=== PATIENT | male | born 1955 | race Caucasian/White ===

== ENCOUNTER → 2018-12-02 12:54 | Outpatient (CLI) | payer BC, OTHER, SELFPAY ==
--- NOTE | 2018-12-02 15:23 | PM.TREADMILL ---
Cardiac Stress Test Report Referral & Results Date Patient Seen: 12/02/18 Requesting provider: Rody Barahona Indication: Chest discomfort Rest ECG: Unremarkable Procedure Note: After both written and verbal informed consent the patient had an IV started by the diagnostic imaging RN and then was hooked up to the treadmill monitoring system. The patient was placed on the treadmill at 1 mile an hour with no elevation and was then injected with the Shwetha scan material. The Cardiolite was then immediately administered. The patient spent an additional 2-3 minutes on the treadmill before being returned to the [facility] in the supine position. The patient had a normal response to all infused materials. Impression: Single ventricular couplet otherwise normal response to infuse materials Please see perfusion imaging report for further details Please note: Actual ECG tracings can be found in the PACS system.
--- NOTE | 2018-12-05 20:32 | DI.NM.S_ITS ---
DATE OF SERVICE: 12/02/2018 PROCEDURE: Pharmacological perfusion study. INDICATIONS: Chest pain with underlying diabetes mellitus, hypertension, hyperlipidemia, obesity. RADIOPHARMACEUTICAL: 20.6 mCi technetium-99m Myoview IV was injected at stress and 20.7 mCi technetium-99m Myoview IV was injected at rest. CARDIAC STRESS: Patient underwent IV Lexiscan perfusion study under the supervision of an attending staff using standard IV Lexiscan infusion as per standard protocol. Patient remained hemodynamically stable. Baseline rhythm was sinus. Stress EKG did not reveal any obvious inducible ischemic changes. Occasional ventricular couplets seen. No sustained ventricular tachycardia seen. RAW DATA: There was increased subdiaphragmatic activity. Patient's weight is 254 pounds. GATED STUDY: Stress LV ejection fraction 63% without any obvious wall motion abnormalities. No transient ischemic dilatation. TID ratio is 0.82, which is within normal limits. Resting LV end-diastolic volume is 104 mL. Lung/heart ratio is 0.46, which is mildly abnormal. MYOCARDIAL PERFUSION SCAN: Stress supine and resting supine images revealed moderate-sized [id number] decreased perfusion of inferior wall and inferior apex which got significantly improved during prone images suggestive of tissue attenuation artifact. I do not see any convincing ischemia infarction. CONCLUSION: I will call this study likely a normal myocardial perfusion study with evidence of diaphragmatic tissue attenuation artifact which got improved during prone images. No transient ischemic dilatation. Preserved systolic function. Lung/heart ratio mildly abnormal. Consider 2-D echo to rule out diastolic dysfunction or valvular pathology. Richie Laurent - [employer]/cynthia/ab doc#: [id number]/job#: [id number] dd: 12/05/2018 18:10:00 dt: 12/05/2018 20:21:00 DICTATING MD/COPIES TO: Chris Oliver MD COPIES MNE: SIMON
== END ==
PROVIDERS: PCP Family Medicine; Visit Provider Family Medicine
DX: R07.89 Other chest pain (principal); E11.9 Type 2 diabetes mellitus without complications; I10 Essential (primary) hypertension; E78.5 Hyperlipidemia, unspecified; E66.9 Obesity, unspecified
CPT/HCPCS: 78452; 93016; 93017; 93018; A9502; J2785

== ENCOUNTER → 2019-11-22 09:12 | Outpatient (CLI) | payer BC, OTHER, SELFPAY ==
--- NOTE | 2019-11-22 09:14 | DI.RAD.S_ITS ---
PROCEDURE: XR LUMBAR SPINE MIN 4V INDICATIONS: Low back pain s/p fusion TECHNIQUE: 4 views of the lumbar spine were acquired. COMPARISON: [facility], [place], SPINE LUMB 2 OR 3VW, 03/11/2016, 14:55. [facility], [place]IO, L-SPINE 2-3 VIEWS, 11/07/2015, 8:53. FINDINGS: Bones: 5 nonrib-bearing vertebrae are present. Unchanged bony alignment. L4-L5 and pedicle screws with intervertebral body spacer. No periprosthetic lucency. No hardware fracture. There is L4-L5 and L5-S1 facet hypertrophy. No vertebral body compression fractures. No suspicious bony lesions. The SI joints appear symmetric. Soft tissues: Overlying bowel gas pattern is normal. A small calcification in in the mid left abdomen. This could represent a medication fragment or less likely kidney stone. Atherosclerotic calcified plaque. IMPRESSION: L4-L5 pedicle screw fixation is stable in appearance. Mild to moderate degenerative change in the lumbar spine. Dictated by: Kevin Ayala M.D. on 11/22/2019 at 9:50 Approved by: Kevin Ayala M.D. on 11/22/2019 at 9:53
== END ==
PROVIDERS: PCP Family Medicine; Referring Provider Physical Medicine & Rehabilitation; Visit Provider Physical Medicine & Rehabilitation
DX: M54.5 Low back pain (principal); M48.061 Spinal stenosis, lumbar region without neurogenic claudication; M47.816 Spondylosis without myelopathy or radiculopathy, lumbar region; Z98.1 Arthrodesis status
CPT/HCPCS: 72110

== ENCOUNTER → 2019-12-13 09:38 | Outpatient (CLI) | payer BC, OTHER, SELFPAY ==
--- NOTE | 2019-12-13 09:39 | DI.MRI.S_ITS ---
PROCEDURE: MR LUMBAR SPINE WO CON INDICATIONS: lower back pain TECHNIQUE: Noncontrast sagittal T1 spin echo and T2 fast echo, sagittal STIR, axial T1 and T2 fast spin echo through the lumbar spine. In cases with scoliosis, additional coronal T2 fast spin echo may be performed. COMPARISON: [facility], CR, L-SPINE 2-3 VIEWS, 11/07/2015, 8:53. [facility], CR, XR LUMBAR SPINE MIN 4V, 11/22/2019, 9:11. FINDINGS: Image quality: This examination is limited by involuntary motion artifact. Alignment and Curvature: There is normal bony alignment. Bone Marrow: Marrow is of normal overall signal. No acute vertebral body compression fractures. Spinal Cord: Conus medullaris terminates at the T12-L1 level. Visualized cord demonstrates normal signal and size. Paraspinous Soft Tissues: No paravertebral masses. T12-L1: Normal appearance. L1-L2: No significant abnormality is seen. L2-L3: The disc height is well-preserved. Loss of disc signal is seen at this level. Moderate generalized disc bulge is seen. Mild to moderate facet hypertrophy is seen. Moderate bilateral neural foraminal narrowing is seen. Moderate central canal narrowing is seen. L3-L4: The disc height is relatively well-preserved. Loss of disc signal is seen. Moderate generalized disc bulge is seen. Moderate facet joint hypertrophy is seen. Associated hypertrophy of the ligamentum flavum can be seen. Along the medial aspect of the right facet joint, there is a T2 hyperintense focus seen, as on series 5 image 21 and is too image 9 that measures up to 1 cm craniocaudally. There is associated severe central canal narrowing. At least moderate bilateral neural foraminal narrowing can be seen at this level. There is a degree of compression seen upon the exiting nerve roots. L4-L5: Postoperative changes are seen, with bilateral pedicle screws and a disc spacer. Vertical fixation rods are seen. There is associated susceptibility artifact. Reactive marrow endplate changes are seen, which are hyperintense on T1-weighted and T2-weighted imaging and most consistent with fatty metaplasia (Modic type II changes). Moderate generalized disc bulge is seen. Moderate facet joint hypertrophy is seen. There is moderate to severe left-sided neural foraminal narrowing seen, with a mild degree of compression seen upon the exiting right L4 nerve root. Moderate right-sided neural foraminal narrowing can be seen. Mild central canal narrowing is seen. L5-S1: The disc height is well-preserved. Loss of disc signal is seen at this level. Mild to moderate disc bulge is seen. Mild to moderate facet hypertrophy is seen. There is mild to moderate right-sided and moderate left-sided neural foraminal narrowing seen. Moderate central canal narrowing is seen. IMPRESSION: At the L3-L4 level, there is a 1 cm T2 hyperintense lesion seen along the medial aspect of the right facet joint, which is attributed to a synovial cyst. There is associated severe central canal narrowing. Unremarkable postoperative change of L4-L5. Moderate to severe bilateral neural foraminal narrowing is seen bilaterally at L3-L4, and there is moderate to severe left-sided neural foraminal narrowing at L4-L5. Associated nerve root compression can be seen. Dictated by: Kayden Yoon M.D. on 12/13/2019 at 11:02 Approved by: Kayden Yoon M.D. on 12/13/2019 at 11:11
== END ==
PROVIDERS: PCP Family Medicine; Referring Provider Physical Medicine & Rehabilitation; Visit Provider Physical Medicine & Rehabilitation
DX: M54.5 Low back pain (principal); M47.816 Spondylosis without myelopathy or radiculopathy, lumbar region; M48.061 Spinal stenosis, lumbar region without neurogenic claudication; M71.38 Other bursal cyst, other site; Z98.1 Arthrodesis status
CPT/HCPCS: 72148

== ENCOUNTER → 2020-02-03 09:58 | Outpatient (CLI) | payer BC, OTHER, SELFPAY ==
[2020-02-04 09:20] LABS: COVID19 Sendout Not Detected (Not Detect)
== END ==
PROVIDERS: PCP Family Medicine; Visit Provider Physician Assistant
DX: Z11.59 Encounter for screening for other viral diseases (principal)
CPT/HCPCS: 87635

== ENCOUNTER 2020-02-06 12:26 | Outpatient (CLI) | payer BC, OTHER, SELFPAY ==
[2020-02-06] VITALS (8 sets, daily range): BP systolic 119–187; BP diastolic 57–92; PULSE 63–78; RESP 9–20; TEMP 36.5; O2SAT 95–98
--- NOTE | 2020-02-06 12:27 | DI.RAD.S_ITS ---
PROCEDURE: PAIN L INTERLAMINAR/CAUDAL INJ INDICATIONS: SPONDYLOSIS COMPARISON: None. FINDINGS: Fluoroscopic spot filming was performed to verify placement of spinal needles at the L3-L4 level(s), as labeled on the films. Appropriate location(s) of the needle tip(s) was confirmed by injection of iodinated contrast. IMPRESSION: Successful needle tip localization at the midline, L3-L4 interlaminar space, for epidural steroid injection. Dictated by: Brian Casillas M.D. on 02/06/2020 at 14:46 Approved by: Brian Casillas M.D. on 02/06/2020 at 14:46
[2020-02-06] MEDS: MIDAZOLAM 5 MG/5 ML VIAL IV (13:20)
[2020-02-06] MEDS: fentaNYL 100 MCG/2 ML INJ 50 MCG IV (13:20)
[2020-02-06] MEDS: BETAMETHASONE 30 MG/5 ML MDV 6 MG INJ (13:24)
[2020-02-06] MEDS: BUPIVACAINE 0.25% (PF) VIAL 2 ML INJ (13:24)
[2020-02-06] MEDS: DEXAMETHASONE 10 MG/ML VIAL 20 MG INJ (13:24)
[2020-02-06] MEDS: IOPAMIDOL 15 ML VIAL 3 ML INJ (13:24)
--- NOTE | 2020-02-06 13:32 | P.PCN_ITS ---
Date/Time/Diagnoses Date of procedure: 02/06/20 Time of procedure: 13:33 Pre-procedure diagnosis: 1. HNP WITH RADICULAR FEATURES, 2. MULTILEVEL CENTRAL STENOSIS, Post-procedure diagnosis: same Procedure Notes Procedure: 1. FLUOROSCOPICALLY GUIDED CONTRAST CONTROLLED INTERLAMINAR EPIDURAL STEROID INJECTION - L3/4 Indications: Richie is referred by Dr. Barahona for treatment of Bilateral Foraminal Stenosis L>R LE symptoms. Physician: Berny Huber Total Fluoroscopy time (seconds): 9 Total sedation minutes: 10 Complications: none Procedure in detail & Post-procedure care: FINDINGS Multilevel Central Spinal Stenosis with Nerve Root Compression DESCRIPTION OF PROCEDURE Fluoroscopically guided, contrast-controlled L3/4 translaminar epidural steroid injection. Following review of allergy and review of potential side effects and complications, including, but not necessarily limited to, infection, allergic reaction, local tissue breakdown, temporary as well as permanent nerve injury, paralysis, stroke and possible , the patient indicated that the patient understood and agreed to proceed. An informed consent document was signed by the patient, witnessed by a nurse, and placed in the patient's chart. Additionally, other treatment options including modalities, medications, and physical therapy were reviewed with the patient. After review of previous anaesthesic history and IV conscious sedation the patient was deemed safe to proceed with today?s procedure with IV conscious sedation as ASA class II designation. Safety time-out was performed to confirm patient ID, procedure to be performed and site of procedure. IV sedation was accomplished with a combination of 2mg of Versed and 50mcg of Fentanyl was administered by the RN after DO order, titrated to patient comfort during the course of the procedure while the patient remained responsive to all verbal commands. In the prone position, following sterile prep and drape of the lumbar region, the L3/4 translaminar space was identified fluoroscopically. The skin was anesthetized via a 25-gauge, 1.5-inch needle with 1% lidocaine solution. At this point, a 22-gauge short bevel spinal needle was atraumatically introduced and advanced under fluoroscopic guidance into the region of the L3/4 translaminar space. Depth was confirmed on lateral view. Radiological data, including multiple fluoroscopic views of the lumbar spine, reveal a spinal needle at the L3/4 translaminar space. Lateral views then show placement of the needle in the epidural space. Subsequent views show contrast material flowing superiorly and inferiorly in the epidural space. No vascular or intrathecal uptake is observed. At this point, using loss of resistance technique with saline and air, the epidural space was entered. This was confirmed following negative aspiration with injection of approximately 1.5 cc of Isovue 200, showing excellent epidural flow without vascular or intrathecal uptake. At this point, 1cc of 1% lidocaine solution combined with 3cc or 20mg of dexamethasone and 6mg of betamethasone was injected without incident. The patient tolerated the procedure well without signs or symptoms of complications prior to transfer to the recovery area continued monitoring without incident. The patient was then transferred to the recovery area where they were observed for an appropriate period of time after the injection. The patient reported a VAS score of 6 prior to the procedure and a post- procedure VAS of 0. POST OP INSTRUCTIONS The patient was provided a Pain Log to continue to record their response to the target-specific procedure prior to follow-up visit with their referring physician. Additionally, specific post-injection care instructions and a contact number to our office were provided if concerns arise regarding possible complications associated with the procedure are suspected.
== END 2020-02-06 13:55 | disposition home or self-care (01) ==
PROVIDERS: PCP Family Medicine; Referring Provider Family Medicine; Visit Provider Physical Medicine & Rehabilitation
DX: M51.16 Intervertebral disc disorders with radiculopathy, lumbar region (principal); M48.061 Spinal stenosis, lumbar region without neurogenic claudication
CPT/HCPCS: 62323; 99152; J0702; J1100; J2250; J3010

== ENCOUNTER → 2020-04-23 13:25 | Outpatient (CLI) | payer BC, OTHER, SELFPAY ==
[2020-04-23 15:21] LABS: COVID19 -Nasal RAPID Negative (Negative)
== END ==
PROVIDERS: PCP Family Medicine; Visit Provider Physical Medicine & Rehabilitation
DX: Z11.59 Encounter for screening for other viral diseases (principal)
CPT/HCPCS: 87635; C9803

== ENCOUNTER 2020-04-25 14:54 | Outpatient (CLI) | payer BC, OTHER, SELFPAY ==
[2020-04-25] VITALS (8 sets, daily range): BP systolic 126–151; BP diastolic 64–73; PULSE 68–81; RESP 7–21; TEMP 36.4–36.5; O2SAT 93–98
--- NOTE | 2020-04-25 14:57 | DI.RAD.S_ITS ---
PROCEDURE: PAIN L/S FACET INJ/BLK 1ST TAMERA COMPARISON: [facility], XA, PAIN L INTERLAMINAR/CAUDAL INJ, 02/06/2020, 13:22. INDICATIONS: spondylosis FINDINGS: This intraprocedural study was performed for localization purposes. On these images, spinal needles are seen at the L3-L4 facets. The appropriate positions of the tips of the needles was confirmed by injection of a small amount of iodinated contrast. IMPRESSION: Intraprocedural examination within normal limits. Dictated by: Kayden Yoon M.D. on 04/25/2020 at 16:23 Approved by: Kayden Yoon M.D. on 04/25/2020 at 16:24
[2020-04-25] MEDS: fentaNYL 100 MCG/2 ML INJ 50 MCG IV (15:38)
[2020-04-25] MEDS: MIDAZOLAM 5 MG/5 ML VIAL IV (15:38)
[2020-04-25] MEDS: BUPIVACAINE 0.5% (PF) VIAL 2 ML INJ (15:42)
[2020-04-25] MEDS: IOPAMIDOL 15 ML VIAL 3 ML INJ (15:43)
[2020-04-25] MEDS: BETAMETHASONE 30 MG/5 ML MDV 12 MG INJ (15:43)
--- NOTE | 2020-04-25 15:58 | P.PCN_ITS ---
Date/Time/Diagnoses Date of procedure: 04/25/20 Time of procedure: 15:58 Pre-procedure diagnosis: 1. FACET ARTHROPATHY 2. AXIAL LBP 3. MULTILEVEL DDD Post-procedure diagnosis: same Procedure Notes Procedure: 1. FLUORSCOPICALLY GUIDED CONTRAST CONTROLLED FACET JOINT INJECTIONS BILATERAL L3/4 Indications: Richie is referred by for treatment of Axial LBP Physician: Berny Huber Total Fluoroscopy time (seconds): 10 Total sedation minutes: 12 Complications: none Procedure in detail & Post-procedure care: FINDINGS Multilevel Facet Arthropathy with Clinically significant axial LBP DESCRIPTION OF PROCEDURE Fluoroscopically guided, contrast-controlled bilateral L3/4 facet joint injections. Following review of allergy and review of potential side effects and complications, including, but not necessarily limited to, infection, allergic reaction, local tissue breakdown, stroke, temporary or permanent nerve injury, paralysis, and possible , the patient indicated that the patient understood and agreed to proceed. An informed consent document was signed by the patient, witnessed by a nurse, and placed in the patient's chart. Additionally, other treatment options including medications, modalities, and physical therapy were reviewed with the patient. After review of previous anaesthesic history and IV conscious sedation the patient was deemed safe to proceed with today's procedure with IV conscious sedation as ASA class II designation. Safety time-out was performed to confirm patient ID, procedure to be performed and site of procedure. IV sedation was acc omplished with a combination of 2mg of Versed and 50mcg of Fentanyl was administered by the RN after DO order, titrated to patient comfort during the course of the procedure while the patient remained responsive to all verbal commands. In the prone position, following sterile prep and drape of the lumbar region, the posterior aspect of the L3/4 facet joints were identified fluoroscopically. The skin was anesthetized via a 25-gauge 1.5-inch needle with 1% lidocaine solution into the corresponding facet joints. At this point, a 22-gauge 3.5- inch spinal needle was atraumatically introduced and advanced under fluoroscopic guidance into the corresponding facet joints. Following negative aspiration, injections of approximately 0.2cc of Isovue 200 confirmed interarticular placement without vascular uptake. The identical procedure was then performed at the L3/4 facet joints on the left. Radiological data, including multiple fluoroscopic views of the lumbosacral spine, reveal a spinal needle at the L3/4 facet joints bilaterally. Subsequent views show flow of contrast material both superiorly and inferiorly within the joint space without vascular or intrathecal uptake. At this point, a total of 0.5cc including a mixture of 0.25cc Marcaine and 0.25cc betamethasone was injected without complication into each of the corresponding facet joints. The patient tolerated the procedure well without signs or symptoms of complications prior to transfer to the recovery area continued monitoring without incident. The patient was then transferred to the recovery area where they were observed for an appropriate period of time after the injection. The patient reported a VAS score of 7 prior to the procedure and a post-procedure VAS of 0. POST OP INSTRUCTIONS The patient was provided a Pain Log to continue to record their response to the target-specific procedure prior to follow-up visit with their referring physician. Additionally, specific post-injection care instructions and a contact number to our office were provided if concerns arise regarding possible complications associated with the procedure are suspected.
== END 2020-04-25 16:11 | disposition home or self-care (01) ==
LOC: RAD 14:56
PROVIDERS: PCP Family Medicine; Referring Provider Physical Medicine & Rehabilitation; Visit Provider Physical Medicine & Rehabilitation
DX: M47.816 Spondylosis without myelopathy or radiculopathy, lumbar region (principal); Z98.1 Arthrodesis status
CPT/HCPCS: 64493; 99152; J0702; J2250; J3010